=== PATIENT | male | born 1990 | race Caucasian/White ===

== ENCOUNTER 2019-06-17 16:51 | Emergency (ER) | payer OTHER ==
[~2019-06-17] VITALS: Wt 91.4 kg
[2019-06-17 19:31] VITALS: BP 138/81; PULSE 56; RESP 56
--- NOTE | 2019-06-17 22:05 | ERD ---
ER Documentation Chief Complaint Chief Complaint post op problem, suture came undone (?) perianal sx HPI History of Present Illness: 29-year-old male coming in today due to possible surgical complication. Patient reports that while doing his daily care to wound, he noticed that 1 of the sutures was broken. Patient denies any fever, chills, excess bleeding, severe pain. Patient is under the care of [facility] clinic Dr. BRICE REYNA At home pharmacological/nonpharmacological treatment for symptoms: Denies Denies social concerns; Denies recent foreign travel ROS All systems reviewed and are negative except as per history of present illness. Medications Home Meds No Active Prescriptions or Reported Meds Allergies Allergies: Coded Allergies: No Known Allergy (Unverified , 08/16/16) PMhx/Soc History of Surgery: Yes (RECTAL) Anesthesia Reaction: Yes (NAUSEA AND VERTIGO) Hx Neurological Disorder: No Hx Respiratory Disorders: No Hx Cardiac Disorders: No Hx Psychiatric Problems: No Hx Miscellaneous Medical Probl: No Hx Alcohol Use: No Hx Substance Use: No Hx Tobacco Use: No FmHx Family History: No diabetes, No coronary disease Physical Exam Vitals Vital Signs Date Temp Pulse Resp B/P (MAP) Pulse Ox O2 O2 Flow FiO2 Time Delivery Rate 06/17/19 99.0 56 56 138/81 100 Room Air 19:31 (100) 06/17/19 97.4 53 20 162/80 99 16:55 (107) Physical Exam Const: No acute distress, afebrile Head: Atraumatic Eyes: Normal Conjunctiva ENT: Normal External Ears, Nose and Mouth. Neck: Full range of motion. No meningismus. Resp: Clear to auscultation bilaterally Cardio: Regular rate and rhythm, no murmurs Abd: Soft, non tender, non distended. No guarding, no masses, no rigidity Skin: No petechiae or rashes Back: No midline or flank tenderness Ext: No cyanosis, or edema Neur: Awake and alert x3, speaking in clear sentences, no focal deficits or facial asymmetry Psych: Normal Mood and Affect : Loop suturing noted, 1 not intact. No signs of hemorrhage. No signs of infection. Procedures/MDM ED COURSE: ED course includes a thorough examination and history. Physician consultation with [facility] on-call physician DR. ARIAS @[phone] ([phone]) MEDICAL DECISION MAKING: Low suspicion for life-threatening medical emergency. Low suspicion for infectious process at this time or hemorrhage. Otherwise healthy patient presenting with constellation of symptoms likely representing encounter for wound recheck as characterized by history, physical exam findings. Patient reassessment @ 1930: Informed patient that I spoke to Dr. ARIAS, the on-call physician for [facility] clinic B, and he suggests that patient to follow-up in the office by calling the surgery center tomorrow to get an appointment. Patient hemodynamically stable. No respiratory distress, otherwise relatively well appearing and nontoxic. Disposition given. Patient educated on diagnoses, follow-up care, return precautions. Strict return precautions given for worsening condition; questions answered discharge. Patient verbalizes understanding of discharge instructions. PRESCRIPTIONS FOR HOME: None DISPOSITION: DISCHARGE At this time, patient is stable for discharge and outpatient management. I have instructed the patient to follow-up with his/her primary care physician in 1-2 days. I have discussed with the patient the possibility of needing to see a specialist for further workup and imaging studies if symptoms persist. I have instructed the patient to promptly return to the ER for any new or worsening symptoms including increased pain, fever, nausea, vomiting, weakness or LOC. The patient and/or family expressed understanding of and agreement with this plan. All questions were answered. Home care instructions were provided. DISCLAIMER: Inadvertent spelling and grammatical errors are likely due to EHR/dictation software use and do not reflect on the overall quality of patient care. Also, please note that the electronic time recorded on this note does not necessarily reflect the actual time of the patient encounter. Departure Diagnosis: Primary Impression: Encounter for wound re-check Condition: Stable Referrals: [facility] (PCP) Additional Instructions: Per the on-call physician recommendations, call the surgical center tomorrow for a follow-up appointment. Return to the emergency department if you develop fever, excess bleeding, or any signs of worsening condition. LIVAN WANG NP Jun 17, 2019 22:01
== END 2019-06-17 19:33 | disposition home or self-care (01) ==
LOC: EDSEX 16:51 → FTE 16:51
DX: Z48.00 Encounter for change or removal of nonsurgical wound dressing (principal)
CPT/HCPCS: 99281